=== PATIENT | female | born 1995 | race Caucasian/White ===

== ENCOUNTER 2021-05-13 18:22 | Emergency (ER) | payer BC ==
[~2021-05-13] VITALS: Ht 157.5 cm; Wt 61.2 kg
[2021-05-13 18:24] VITALS: BP 142/90
[2021-05-13 18:38] VITALS: BP 127/81
--- NOTE | 2021-05-13 18:45 | NUR ---
PATIENT AMBULATED TO BED4.
--- NOTE | 2021-05-13 19:40 | NUR ---
25 Y/O PATIENT PRESENTS TO ED WITH RASH . PT STATES " I GOT MY TATTO LAST FRIDAY AND SUDDENLY I HAVE ALL THESE RASHES." . DENIES N/V/D; SKIN IS PINK/WARM/DRY; AAOX4 WITH EVEN AND STEADY GAIT; LUNGS CLEAR BL; HR EVEN AND REGULAR; PT DENIES ANY FEVER, CP, SOB, OR COUGH AT THIS TIME; PATIENT STATES PAIN OF 0/10 AT THIS TIME; VSS; PATIENT POSITIONED FOR COMFORT; HOB ELEVATED; BEDRAILS UP X2; BED DOWN. ER MD MADE AWARE OF PT STATUS. NKA PMH: DENIES
--- NOTE | 2021-05-13 20:10 | NUR ---
Dr. Lerma examining patient.
[2021-05-13] MEDS ORDERED: CEPH-588 PO (20:40)
[2021-05-13] MEDS ORDERED: MUPI2CRE22 TP (20:40)
[2021-05-13] MEDS ORDERED: SULF-59 PO (20:40)
[2021-05-13 20:46] VITALS: BP 127/81
--- NOTE | 2021-05-13 20:50 | NUR ---
Patient discharged with v/s stable. Written and verbal after care instructions given and explained. Patient verbalized understanding. Ambulatory with steady gait. All questions addressed prior to discharge. Advised to follow up with PMD.
== END 2021-05-13 20:50 | disposition home or self-care (01) ==
LOC: MED 18:22
DX: L03.113 Cellulitis of right upper limb (principal); Z79.899 Other long term (current) drug therapy
CPT/HCPCS: 99283